=== PATIENT | male | born 1975 | race American Indian/Alaskan Native ===

== ENCOUNTER 2020-10-11 08:06 | Emergency (ER) | payer OTHER ==
[2020-10-11 08:15] VITALS: BP 197/102
[2020-10-11] MEDS ORDERED: DIPHtheria,PERTUSSIS(ACELL),TETANUS VACCINE/PF 0.5 ML VIAL IM ONE (08:15)
--- NOTE | 2020-10-11 08:40 | Emergency Department Report ---
ED Laceration HPI - HPI Chief Complaint: Wound/Laceration Stated Complaint: CUT ON NECK Time Seen by Provider: 10/11/20 08:11 Location: Neck Severity: mild Tetanus Status: Not up to Date Laceration Symptoms: Yes Pain, No Foreign Body Sensation, No Numbness, No Weakness Other History: This is a 44-year-old male nontoxic, well in appearance with no signs of distress presents to the ED for laceration to right sided neck laceration that occurred 2 days ago. Stated was playing with a knife with his dad and accidently cut himself. Patient stated he is asymptotic. Denies any decreased ROM. Patient denies any fever, chills, headache, nausea, vomiting, chest pain or shortness of breathe. Denies any other symptoms or complaints. Denies any allergies. Stated is not UTD with tetanus. PMH includes HTN which he stated does not take medications for but is aware of his blood pressure and sees PCP for this. ED Review of Systems ROS: Stated complaint: CUT ON NECK Other details as noted in HPI Constitutional: denies: chills, fever Eyes: denies: eye pain, eye discharge, vision change ENT: denies: ear pain, throat pain Respiratory: denies: cough, shortness of breath, wheezing Cardiovascular: denies: chest pain, palpitations Endocrine: no symptoms reported Gastrointestinal: denies: abdominal pain, nausea, diarrhea Genitourinary: denies: urgency, dysuria Musculoskeletal: denies: back pain, joint swelling, arthralgia Skin: denies: rash, lesions Neurological: denies: headache, weakness, paresthesias Psychiatric: denies: anxiety, depression Hematological/Lymphatic: denies: easy bleeding, easy bruising ED Past Medical Hx - Past Medical History Previous Medical History?: Yes Hx Hypertension: Yes - Medications Home Medications: Home Medications Medication Instructions Recorded Confirmed Last Taken Type Sulfamethoxazole/Trimethoprim 1 each PO BID #14 tablet 10/11/20 Unknown Rx [Bactrim DS TAB] Laceration Physical Exam - Exam General: Vital signs noted. No distress. Alert and acting appropriately. Wound Length (cm): 2 (right lateral neck area) Laceration Location: Neck Laceration Exam: Yes Normal Distal CMS, No Foreign Body, No Exposed Tendon, Vessel, or Nerve, No Tendon Injury ED Course Vital Signs 10/11/20 08:14 Temperature 98.5 F Pulse Rate 111 H Respiratory 16 Rate Blood Pressure 197/102 [Right] O2 Sat by Pulse 98 Oximetry Vital Signs 10/11/20 10/11/20 08:14 08:54 Temperature 98.5 F Pulse Rate 111 H 89 Respiratory 16 16 Rate Blood Pressure 197/102 [Right] O2 Sat by Pulse 98 98 Oximetry - Reevaluation(s) Reevaluation #2: 10/11/20 08:36 Patient is speaking in full sentences with no signs of distress noted. - Laceration /Wound Repair Right Neck Wound Location: neck Wound Length (cm): 2 Wound's Depth, Shape: linear Wound Explored: contaminated Irrigated w/ Saline (ccs): 40 Betadine Prep?: Yes Volume Anesthetic (ccs): 3 (0.5 % marcaine plain) Wound Repaired With: sutures Suture Size/Type: 3:0, nylon Number of Sutures: 3 (very loosly ) Sterile Dressing Applied?: Yes Progress: Under sterile field, I used betadine to clean the area. Injected 0.5 % marcaine plain with total of 3 cc. 3-0 proline used very loosely with total of 3 sutures placed. Sterile dressing applied. Patient tolerated well. Bleeding under control. ED Medical Decision Making - Medical Decision Making 44-year-old male that presents with lac. Patient is stable and was examined by me. Patient tolerated well. Educated on care. Patient received Tetanus. Will DC with bactrim. Educated patient on HTN. Patient was instructed to Follow-up with a primary care doctor in 3-5 days or if symptoms worsen and continue return to emergency room as soon as possible. At time of discharge, the patient does not seem toxic or ill in appearance. No acute signs of distress noted. Patient agrees to discharge treatment plan of care. No further questions noted by the patient. According to ACEP HTN guidelines, In ED patients with asymptomatic markedly elevated blood pressure, routine screening for acute target organ injury (eg, serum creatinine, urinalysis, ECG) is not required; In patients with asymptomatic markedly elevated blood pressure, routine ED medical intervention is not required. Critical care attestation.: If time is entered above; I have spent that time in minutes in the direct care of this critically ill patient, excluding procedure time. ED Disposition Clinical Impression: Laceration HTN (hypertension) Qualifiers: Hypertension type: unspecified Qualified Code(s): I10 - Essential (primary) hypertension Disposition: DC- TO HOME OR SELFCARE Is pt being admited?: No Does the pt Need Aspirin: No Condition: Stable Instructions: Laceration Care, Adult, Hypertension (ED) Additional Instructions: Follow-up with a primary care doctor in 3-5 days or if symptoms worsen and continue return to emergency room as soon as possible. Return in 10 days for suture removal. Prescriptions: Sulfamethoxazole/Trimethoprim [Bactrim DS TAB] 1 each PO BID #14 tablet Referrals: PRIMARY MD SHERIE [Primary Care Provider] - 3-5 Days MJ BARTLETT MD [Staff Physician] - 3-5 Days Time of Disposition: 08:54
[2020-10-11] MEDS ORDERED: BUPIVACAINE/PF (0.5%) 5 MG/1 ML 10 ML VIAL INFILTRATI NR (09:00)
== END 2020-10-11 09:30 | disposition home or self-care (01) ==
LOC: ED 08:06
DX: S11.91XA Laceration without foreign body of unspecified part of neck, initial encounter (principal); I10 Essential (primary) hypertension; Z79.899 Other long term (current) drug therapy; W26.0XXA Contact with knife, initial encounter; Y93.89 Activity, other specified; Y92.89 Other specified places as the place of occurrence of the external cause; Y99.8 Other external cause status
CPT/HCPCS: 90471; 90715

== ENCOUNTER 2021-05-13 15:39 | Emergency (ER) | payer SELFPAY | END 2021-05-13 17:00 | disposition home or self-care (01) | LOC: ED 15:39 | DX: R22.9 Localized swelling, mass and lump, unspecified (principal); Z53.21 Procedure and treatment not carried out due to patient leaving prior to being seen by health care provider ==